=== PATIENT | female | born 1990 | race Caucasian/White ===

== ENCOUNTER 2016-05-14 20:43 | Emergency (ER) | payer SELFPAY ==
[2016-05-14 23:51] VITALS: BP 128/62
== END 2016-05-14 23:51 | disposition home or self-care (01) ==
LOC: ED 20:43
DX: F41.9 Anxiety disorder, unspecified (principal)

== ENCOUNTER 2018-07-31 09:13 | Emergency (ER) | payer SELFPAY ==
[~2018-07-31] VITALS: Ht 165.1 cm; Wt 92.5 kg
[2018-07-31 09:27] VITALS: Ht 165.1 cm; Wt 92.5 kg
[2018-07-31 11:38] LABS: UA SPECIFIC GRAVITY 1.015 (1.005-1.035); microscopic required? YES; urine erythrocyte NEGATIVE (NEGATIVE)
[2018-07-31 11:41] VITALS: BP 131/76
== END 2018-07-31 11:41 | disposition home or self-care (01) ==
LOC: ED 09:13
PROVIDERS: Emergency Medicine
DX: S39.012A Strain of muscle, fascia and tendon of lower back, initial encounter (principal); N39.0 Urinary tract infection, site not specified; V49.9XXA Car occupant (driver) (passenger) injured in unspecified traffic accident, initial encounter; Y93.I9 Activity, other involving external motion; Y92.413 State road as the place of occurrence of the external cause; Y99.8 Other external cause status